=== PATIENT | female | born 1990 | race Hispanic/Latino ===

== ENCOUNTER 2020-01-13 11:28 | Emergency (ER) | payer MEDICAID, OTHER ==
[2020-01-13] MEDS ORDERED: LIDOCAINE HCL-MPF 1% 2ML VIAL ONE (13:04)
[2020-01-13] MEDS ORDERED: HYDROCODONE/ACETAMINOPHEN 5/325 MG TAB ONE (13:05)
[2020-01-13] MEDS ORDERED: CEFTRIAXONE SODIUM 1 GM ONE (13:05)
== END 2020-01-13 13:18 | disposition home or self-care (01) ==
LOC: EDH 11:28
DX: S01.511A Laceration without foreign body of lip, initial encounter (principal); S00.532A Contusion of oral cavity, initial encounter; Z87.891 Personal history of nicotine dependence; X58.XXXA Exposure to other specified factors, initial encounter; Y93.89 Activity, other specified; Y92.89 Other specified places as the place of occurrence of the external cause; Y99.8 Other external cause status
CPT/HCPCS: 96372; 99283; J0696; J3490

== ENCOUNTER 2021-01-09 15:17 | Emergency (ER) | payer OTHER ==
[~2021-01-09] VITALS: Ht 165.1 cm; Wt 78.5 kg
[2021-01-09 15:53] LABS: APPEARANCE,URINE Clear (CLEAR); BILIRUBIN,URINE Negative (NEGATIVE); COLOR,URINE Yellow (YELLOW); GLUCOSE, URINE (UA) Negative (NEGATIVE); KETONES,URINE Negative (NEGATIVE); LEUKOCYTE ESTERASE ,URINE Negative (NEGATIVE); NITRATE,URINE Negative (NEGATIVE); OCCULT BLOOD,URINE Trace (NEGATIVE); PH,URINE 6.5 (5.0-8.0); PROTEIN,URINE Trace mg/dL (NEGATIVE)
[2021-01-09 15:58] LABS: HCG,QUAL RESULT NEGATIVE (NEGATIVE)
[2021-01-09] MEDS ORDERED: ONDANSETRON 4MG TABLET PO ONE (16:00)
[2021-01-09] MEDS ORDERED: FAMOTIDINE 20MG TAB PO ONE (16:00)
[2021-01-09] MEDS ORDERED: MAG/ALUM/SIMETH 30 ML UDCUP PO ONE (16:00)
[2021-01-09 16:10] LABS: BACTERIA,URINE Rare /HPF (None Seen); RBC,URINE 0-1 /HPF (0-1); SQUAMOUS EPITHELIAL CELL,UR Few /HPF (0-2); WBC,URINE 0-1 /HPF (0-1)
[2021-01-09 16:46] LABS: BASOPHILS % (AUTO) 0.4 % (0.0-5.0); EOSINOPHILS % (AUTO) 2.3 % (0.0-8.0); HEMATOCRIT 35.8 % (36-48); MEAN CORPUSCULAR HEMOGLOBIN 28.6 pg (27.0-33.0); MEAN CORPUSCULAR HGB CONC 33.5 g/dL (32.0-36.0); MEAN CORPUSCULAR VOLUME 85.2 fL (79-99); MONOCYTES % (AUTO) 8.3 % (3.0-13.0); NEUTROPHILS % (AUTO) 61.8 % (40.0-77.0); PLATELET COUNT (AUTO) 270 K/uL (130-400); RED CELL DISTRIBUTION WIDTH 14.3 % (11.0-15.5); WHITE BLOOD COUNT (AUTO) 8.1 K/uL (4.8-10.8)
[2021-01-09 16:57] LABS: CREATININE 1.1 mg/dL (0.5-1.5); POTASSIUM 3.8 mmol/L (3.5-5.1)
[2021-01-09 17:01] LABS: ALBUMIN 3.1 g/dL (3.5-5.0); BILIRUBIN,TOTAL 0.2 mg/dL (0.2-1.0); TOTAL PROTEIN, SERUM 6.4 g/dL (6.0-8.3)
[2021-01-09] MEDS ORDERED: DICY20TA2 PO (17:27)
[2021-01-09] MEDS ORDERED: FAMO-136 PO (17:27)
[2021-01-09 17:34] VITALS: BP 126/78
== END 2021-01-09 17:33 | disposition home or self-care (01) ==
LOC: EDH 15:17
DX: K29.70 Gastritis, unspecified, without bleeding (principal); K21.9 Gastro-esophageal reflux disease without esophagitis; Z79.899 Other long term (current) drug therapy
CPT/HCPCS: 36415; 71045; 80053; 81001; 81025; 83690; 85025; 99284; Q0162

== ENCOUNTER 2024-07-01 21:19 | Emergency (ER) | payer SELFPAY ==
[~2024-07-01] VITALS: Ht 165.1 cm; Wt 84.8 kg
[~2024-07-01 21:19] MED LIST: DICY20TA2 PO; FAMO-136 PO
--- NOTE | 2024-07-01 21:52 | ERN ---
General Chief Complaint: Abdominal Pain Stated Complaint: C/O ABD PAIN TO LEFT SIDE W/N X V X DIARRHEA X 2 D Time Seen by MD: 21:25 History of Present Illness Initial Comments Ms. Bonilla is a very pleasant 33-year-old female with a significant past medical history of bipolar and anxiety disorder who comes in today with a chief complaint of abdominal pain. Patient reports that she has been experiencing constant dull left upper quadrant abdominal pain since Monday night. She reports the pain started after participating in a pool tournament where she was consuming 5 came in [place] over approximately 3 hours. She subsequently developed black dark emesis, persistent left upper quadrant pain and diarrhea. She initially plan to seek medical care in [place] due to lack of insurance but presented to the ER today due to worsening pain. She describes the pain as constant and dull worsening with movement localized under her left costal margin and radiation towards the left lower quadrant and back. Patient reports diarrhea but denies fever chills chest pain shortness of breath urinary symptoms or vaginal discharge. She maintains appetite but notes that the food goes right through her Allergies: Coded Allergies: No Known Allergies (Unverified Allergy, Unknown, 01/09/21) Home Meds Active Scripts Dicyclomine HCl (Bentyl) 20 Mg Tab, 20 MG PO QIDP, #28 TAB Prov:DEBORAH RODAS 01/09/21 Famotidine (Pepcid) 20 Mg Tablet, 20 MG PO BIDAC, #60 TAB Prov:DEBORAH RODAS 01/09/21 Past Medical History Past Medical History: No Pertinent History Past Surgical History: Social History Social History: Lives with family Female( History) LMP: Jun 18, 2024 ROS Dictation Constitutional: Negative for fever,chills, and weight loss Eyes: Negative for injury, pain,redness, and discharge ENT: Negative for injury,pain or swelling Cardiovascular: Negative for chest pain, palpitations, and edema Respiratory: Negative for shortness of breath, cough, and wheezing, Abdomen/GI: Positive for abdominal pain, diarrhea and black vomit Back: Negative for injury and pain : Negative for injury, bleeding and discharge MS/Extremity: Negative for injury and deformity Skin: Negative for rash, and discoloration Neuro: Negative for headache, weakness, numbness, tingling, and seizure Psych: Negative for suicide ideation, homicidal ideation, and hallucinations Physical Exam Physical Exam Dictation General: awake, alert, NAD Head/Face: Normocephalic, atraumatic Eyes: PERRL, EOMI ENT: oral cavity clear, TMs clear, no signs of infection Neck: Trachea midline, supple, no nuchal rigidity Cardiovascular: RRR, normal S1/S2, No MRGs, no JVD Respiratory: CTAB, no respiratory distress, No rales or wheezes Abdomen: Soft mid distention tender to palpation in the left upper quadrant under costal margin. No guarding no rebound or peritoneal signs. Skin: Warm, dry, normal turgor, no rash MS/Extremity: Pulses equal, no cyanosis, neurovascular intact, FROM Neuro: COAx4, GCS 15, strength 5/5, CN 2-12 intact, normal cerebellar exam, normal gait, Psych: Normal behavior, mood, and affect normal Results Laboratory and Microbiology Lab and Micro Result Laboratory Tests Test 07/01/24 21:30 07/01/24 21:51 Urine Color LIGHT-YELLOW (YELLOW) Urine Appearance CLEAR (CLEAR) Urine pH 5.5 (5.0-8.0) Urine Specific Shiro 1.024 (1.001-1.031) Urine Protein NEGATIVE mg/dL (NEGATIVE) Urine Glucose (UA) NEGATIVE mg/dL (NEGATIVE) Urine Ketones NEGATIVE mg/dL (NEGATIVE) Urine Occult Blood NEGATIVE (NEGATIVE) Urine Nitrate NEGATIVE (NEGATIVE) Urine Bilirubin NEGATIVE mg/dL (NEGATIVE) Urine Urobilinogen 0.2 mg/dL (0.2-1.0) Urine Leukocyte Esterase NEGATIVE Dionisio/uL Urine HCG, Qualitative NEGATIVE (NEGATIVE) White Blood Count 11.5 K/uL (4.8-10.8) H Red Blood Count 4.14 MIL/uL (4.00-5.50) Hemoglobin 10.3 g/dL (12.0-16.0) L Hematocrit 31.7 % (36-48) L Mean Corpuscular Volume 76.6 fL (79-99) L Mean Corpuscular Hemoglobin 24.9 pg (27.0-33.0) L Mean Corpuscular Hemoglobin Concent 32.5 g/dL (32.0-36.0) Red Cell Distribution Width 16.6 % (11.0-15.5) H Platelet Count 323 K/uL (130-400) Mean Platelet Volume 10.6 fL (7.5-10.5) H Immature Granulocyte % (Auto) 0.4 % (0-1) Neutrophils (%) (Auto) 70.6 % (40.0-77.0) Lymphocytes (%) (Auto) 20.7 % (21.0-51.0) L Monocytes (%) (Auto) 5.7 % (3.0-13.0) Eosinophils (%) (Auto) 2.1 % (0.0-8.0) Basophils (%) (Auto) 0.5 % (0.0-5.0) Neutrophils # (Auto) 8.0 K/uL (1.8-7.7) H Lymphocytes # (Auto) 2.3 K/uL (1.0-4.8) Monocytes # (Auto) 0.6 K/uL (0.1-1.0) Eosinophils # (Auto) 0.24 K/uL (0.00-0.70) Basophils # (Auto) 0.06 K/uL (0.00-0.20) Absolute Immature Granulocyte (auto 0.04 K/uL (0-1) Nucleated Red Blood Cells 0.0 % (0.0-0.19) Sodium Level 136 mmol/L (136-145) Potassium Level 3.8 mmol/L (3.5-5.1) Chloride Level 99 mmol/L (101-111) L Carbon Dioxide Level 26 mmol/L (21-32) Blood Urea Nitrogen 13 mg/dL (7-18) Creatinine 1.0 mg/dL (0.5-1.0) Glomerular Filtration Rate Calc 76 mL/min (>90) Random Glucose 100 mg/dL (70-105) Lactic Acid Level 1.7 mmol/L (0.8-2.5) Total Calcium 8.7 mg/dL (8.5-10.1) Total Bilirubin 0.1 mg/dL (0.2-1.0) L Aspartate Amino Transf (AST/SGOT) 14 U/L (10-37) Alanine Aminotransferase (ALT/SGPT) 21 U/L (12-78) Alkaline Phosphatase 137 U/L (50-136) H Total Protein 6.6 g/dL (6.0-8.3) Albumin 3.2 g/dL (3.5-5.0) L Lipase 84 U/L (16-77) H MDM Patient has no evidence of pancreatitis or cholecystitis. We will likely diagnosis includes gastritis/alcohol related irritation and functional pain. Patient advised to consult GI as an outpatient MDM: Differential diagnosis: Pancreatitis, gastroenteritis, alcohol related irritation, functional pain Rationale: Tests considered and ordered secondary to shared decision making include: Previous outside records reviewed: Old ER visits. Risk of complication and/or morbidity or mortality of patient management: None Medications-Per medication reconciliation Need for hospitalization: Patient does not meet criteria for hospitalization. Need for emergency major/minor surgery: No There are no social concerns with this patient. Prescription drug management Prescriptions will include symptomatic care Patient's prior external medical records from other ER visits were reviewed by me as indicated. Prior testing and results from previous visits were reviewed. Prior tests were taken into account with medical decision making and resource utilization, independent historian/historians were used to obtain complete medical history. I independently interpreted the test that were performed, results were reviewed by me and considered findings on radiology if ordered. Medical management and examination interpretation discussions were had by me with other qualified healthcare professionals as indicated for the patient's care. ED Course Orders Procedure Category Date Status Time Urinalysis Profile LAB 07/01/24 Complete 21:44 Comprehensive LAB 07/01/24 Complete Metabolic Panel 21:42 Lipase LAB 07/01/24 Complete 21:42 Lactic Acid LAB 07/01/24 Complete 21:42 ,Urine Test LAB 07/01/24 Complete 21:42 0.9%Nacl 1000ml (Ns PHA 07/01/24 In Process 1000ml) 22:00 Pantoprazole 40mg Inj PHA 07/01/24 Complete (Protonix 40mg Inj 22:00 Us Abdominal Ruq\Ltd US 07/01/24 Resulted 21:51 Cbc With Differential LAB 07/01/24 Complete 21:51 Ketorolac PHA 07/01/24 Complete Tromethamine 15mg/Ml 23:00 Sucralfate (Carafate) PHA 07/01/24 Complete 23:30 Lidocaine Hcl 2% PHA 07/01/24 Complete Viscous (Lidocaine Hcl 23:30 Mag/Alum/Simeth 30ml PHA 07/01/24 Complete (Maalox Plus 30ml) 23:30 Dicyclomine Hcl PHA 07/01/24 Complete (Bentyl 10mg/5ml 23:30 Current Medications Medications (Trade) Dose Ordered Sig/Miranda Route PRN Reason Start Time Stop Time Status Last Admin Dose Admin Al Hydroxide/Mg Hydroxide (MAALox PLUS 30ML) 30 ml ONCE ONCE PO 07/01/24 23:30 07/01/24 23:31 DC 07/01/24 23:40 Dicyclomine HCl (Bentyl 10mg/5ml Syrup) 10 mg ONCE ONCE PO 07/01/24 23:30 07/01/24 23:31 DC 07/01/24 23:39 Ketorolac Tromethamine (toRADol) 15 mg ONCE ONCE IV 07/01/24 23:00 07/01/24 23:01 DC 07/01/24 22:58 Lidocaine HCl (Lidocaine HCl 2% Viscous) 10 ml ONCE ONCE PO 07/01/24 23:30 07/01/24 23:31 DC 07/01/24 23:40 Pantoprazole Sodium (PROTonix 40MG INJ) 40 mg ONCE ONCE IVP 07/01/24 22:00 07/01/24 22:01 DC 07/01/24 21:56 Sodium Chloride 1,140 ml @ 380 mls/hr ONCE ONCE IV 07/01/24 22:00 07/02/24 00:59 07/01/24 21:54 Sucralfate (Carafate) 1 gm ONCE ONCE PO 07/01/24 23:30 07/01/24 23:31 DC 07/01/24 23:40 Vital Signs Date Time Temp Pulse Resp B/P (MAP) Pulse Ox O2 Delivery O2 Flow Rate FiO2 07/02/24 00:10 97.9 67 17 114/70 98 Room Air* 0 21 07/01/24 23:06 98.1 81 18 134/82 100 Room Air* 0 21 07/01/24 21:52 85 18 152/86 100 Room Air* 0 21 07/01/24 21:22 98.4 78 20 144/92 96 Room Air DX & DISP Disposition: Discharge Departure Impression: Primary Impression: Gastritis Condition: Stable Scripts Sucralfate (Sucralfate) 1 Gram Tablet 1 TAB PO QID PRN for ABDOMINAL PAIN for 30 Days, #120 TAB 0 Refills Prov: NIURKA BARAHONA MD 07/02/24 Pantoprazole Sodium (Protonix) 40 Mg Ectab 40 MG PO DAILY for 30 Days, #30 TAB.EC Prov: NIURKA BARAHONA MD 07/02/24 Additional Instructions: Follow up with your primary care physician for a GI consult and consideration for an EGD. He will likely need an iron panel/ferritin as an outpatient. Continue to take Protonix and sucralfate for gastritis. Avoid alcohol. Consider brat diet. If symptoms worsen or come back please return to the emergency department Referrals: SELF,REFERRAL (PCP) NIURKA BARAHONA MD Jul 01, 2024 21:52
[2024-07-01] MEDS: 0.9%NACL 1000ML 1,140 ML IV ONE (21:54)
[2024-07-01] MEDS: PANTOPrazole 40 MG/VIAL IVP ONE (21:56)
[2024-07-01 21:57] LABS: HEMATOCRIT 31.7 % (36-48); MEAN CORPUSCULAR HEMOGLOBIN 24.9 pg (27.0-33.0); MEAN CORPUSCULAR HGB CONC 32.5 g/dL (32.0-36.0); MEAN CORPUSCULAR VOLUME 76.6 fL (79-99); PLATELET COUNT (AUTO) 323 K/uL (130-400); RED BLOOD CELL COUNT(AUTO) 4.14 MIL/uL (4.00-5.50); RED CELL DISTRIBUTION WIDTH 16.6 % (11.0-15.5); WHITE BLOOD COUNT (AUTO) 11.5 K/uL (4.8-10.8)
[2024-07-01 22:03] LABS: BASOPHILS # (AUTO) 0.06 K/uL (0.00-0.20); BASOPHILS % (AUTO) 0.5 % (0.0-5.0); EOSINOPHILS # (AUTO) 0.24 K/uL (0.00-0.70); EOSINOPHILS % (AUTO) 2.1 % (0.0-8.0); IMMATURE GRANULOCYTE ABSOLUTE 0.04 K/uL (0-1); LYMPHOCYTES # (AUTO) 2.3 K/uL (1.0-4.8); LYMPHOCYTES % (AUTO) 20.7 % (21.0-51.0); MONOCYTES # (AUTO) 0.6 K/uL (0.1-1.0); MONOCYTES % (AUTO) 5.7 % (3.0-13.0); NEUTROPHILS % (AUTO) 70.6 % (40.0-77.0)
[2024-07-01 22:10] LABS: APPEARANCE,URINE CLEAR (CLEAR); BILIRUBIN,URINE NEGATIVE (NEGATIVE); COLOR,URINE LIGHT-YELLOW (YELLOW); GLUCOSE, URINE (UA) NEGATIVE (NEGATIVE); KETONES,URINE NEGATIVE (NEGATIVE); LEUKOCYTE ESTERASE ,URINE NEGATIVE Leu/uL (NEGATIVE); NITRATE,URINE NEGATIVE (NEGATIVE); OCCULT BLOOD,URINE NEGATIVE (NEGATIVE); PH,URINE 5.5 (5.0-8.0); PROTEIN,URINE NEGATIVE (NEGATIVE); UROBILINOGEN,URINE 0.2 mg/dL (0.2-1.0)
[2024-07-01 22:12] LABS: ADD UA MICROSCOPIC NO
[2024-07-01 22:12] LABS: POTASSIUM 3.8 mmol/L (3.5-5.1)
[2024-07-01 22:16] LABS: ALBUMIN 3.2 g/dL (3.5-5.0); BILIRUBIN,TOTAL 0.1 mg/dL (0.2-1.0); TOTAL PROTEIN, SERUM 6.6 g/dL (6.0-8.3)
--- NOTE | 2024-07-01 22:33 | HMCIMG ---
US ABDOMINAL RUQ\E\LTD HISTORY: Abdominal pain COMPARISON: None TECHNIQUE: Right upper quadrant abdominal ultrasound study was performed. Additional images of left upper abdomen were obtained. FINDINGS: Abdominal aorta and inferior vena cava are unremarkable. Pancreas are well seen due to overlying bowel gas. Liver measures 16.5 cm. There is echogenic focus in the right hepatic lobe measuring 2.4 x 1.5 x 2.6 cm. This may be related to angioma. Liver is echogenic consistent with liver parenchymal disease. No gallstone is seen. Common duct is not visualized. No evidence of gallbladder wall thickening is seen. Right kidney measures 10.6 x 4.6 x 5.2 cm. Left kidney measures 10.3 x 5 x 5.5 cm. No hydronephrosis is seen. Spleen measures 9.1 cm. IMPRESSION: 1. No gallstones is seen. Common duct is not well visualized. 2. No hydronephrosis is seen.
[2024-07-01] MEDS: ketOROlac 15MG/ML VIAL (15MG/ML) IV ONE (22:58)
[2024-07-01] MEDS: DICYCLOMINE HCL 10 MG/5 ML ML PO ONE (23:39)
[2024-07-01] MEDS: SUCRALFATE 1 GM/10 ML PO ONE (23:40)
[2024-07-01] MEDS: LIDOCAINE HCL 2% VISCOUS 15 ML UDCUP PO ONE (23:40)
[2024-07-01] MEDS: MAG/ALUM/SIMETH 30 ML UDCUP PO ONE (23:40)
[2024-07-02 00:10] VITALS: TEMP 97.8
[2024-07-02] MEDS ORDERED: PANT40TA55 PO (00:17)
[2024-07-02] MEDS ORDERED: SUCR1TAB2 PO (00:17)
[2024-07-02 00:27] VITALS: BP 114/70; PULSE 67; RESP 18; O2SAT 100
== END 2024-07-02 00:28 | disposition home or self-care (01) ==
LOC: EDH 21:19
DX: K29.70 Gastritis, unspecified, without bleeding (principal); F31.9 Bipolar disorder, unspecified; Z98.890 Other specified postprocedural states
CPT/HCPCS: 99285; 96374; 76705; 96361; 96375; 80053; 83690; 85025; 83605; 81003; 81025; 36415; J1885; J7030; J2470